=== PATIENT | female | born 1980 | race African-American/Black ===

== ENCOUNTER 2018-02-14 16:39 | Emergency (ER) | payer OTHER ==
[~2018-02-14] VITALS: Ht 162.6 cm; Wt 59.0 kg
[2018-02-14 17:09] VITALS: BP 104/71
[2018-02-14] MEDS ORDERED: DEXAMETHASONE 4 MG TABLET PO ONE (17:30)
[2018-02-14] MEDS ORDERED: PRED20TA PO (17:42)
[2018-02-14] MEDS ORDERED: ALBU8.5H8 INH (17:42)
[2018-02-14] MEDS ORDERED: BENZ100C PO (17:42)
--- NOTE | 2018-02-14 17:42 | PHYS DOC ---
Past History Past Medical History: Asthma Past Surgical History: Alcohol Use: None Drug Use: None Adult General Chief Complaint Chief Complaint: COUGH HPI HPI Patient is a [age] year old [sex] who presents with [] Review of Systems Review of Systems Constitutional: Denies fever or chills [] Eyes: Denies change in visual acuity, redness, or eye pain [] HENT: Denies nasal congestion or sore throat [] Respiratory: Denies cough or shortness of breath [] Cardiovascular: No additional information not addressed in HPI [] GI: Denies abdominal pain, nausea, vomiting, bloody stools or diarrhea [] : Denies dysuria or hematuria [] Musculoskeletal: Denies back pain or joint pain [] Integument: Denies rash or skin lesions [] Neurologic: Denies headache, focal weakness or sensory changes [] Endocrine: Denies polyuria or polydipsia [] All other systems were reviewed and found to be within normal limits, except as documented in this note. Current Medications Current Medications Current Medications Medications (Trade) Dose Ordered Sig/Margaret Start Time Stop Time Status Last Admin Dose Admin Dexamethasone (Decadron) 10 mg 1X ONCE 02/14/18 17:30 02/14/18 17:31 DC Allergies Allergies Allergies Coded Allergies Type Severity Reaction Last Updated Verified Penicillins Allergy Unknown 02/14/18 Yes Physical Exam Physical Exam Constitutional: Well developed, well nourished, no acute distress, non-toxic appearance. [] HENT: Normocephalic, atraumatic, bilateral external ears normal, oropharynx moist, no oral exudates, nose normal. [] Eyes: PERRLA, EOMI, conjunctiva normal, no discharge. [] Neck: Normal range of motion, no tenderness, supple, no stridor. [] Cardiovascular:Heart rate regular rhythm, no murmur [] Lungs & Thorax: Bilateral breath sounds clear to auscultation [] Abdomen: Bowel sounds normal, soft, no tenderness, no masses, no pulsatile masses. [] Skin: Warm, dry, no erythema, no rash. [] Back: No tenderness, no CVA tenderness. [] Extremities: No tenderness, no cyanosis, no clubbing, ROM intact, no edema. [] Neurologic: Alert and oriented X 3, normal motor function, normal sensory function, no focal deficits noted. [] Psychologic: Affect normal, judgement normal, mood normal. [] Current Patient Data Vital Signs Vital Signs Date Time Temp Pulse Resp B/P (MAP) Pulse Ox O2 Delivery O2 Flow Rate FiO2 02/14/18 17:09 Room Air 02/14/18 17:09 98.2 89 20 98 EKG EKG [] Radiology/Procedures Radiology/Procedures [] Course & Med Decision Making Course & Med Decision Making Pertinent Labs and Imaging studies reviewed. (See chart for details) [] Dragon Disclaimer Dragon Disclaimer This electronic medical record was generated, in whole or in part, using a voice recognition dictation system. Departure Departure: Impression: Primary Impression: Bronchitis Disposition: HOME, SELF-CARE Condition: STABLE Referrals: YUNI GUIDRY (PCP) Patient Instructions: Acute Bronchitis, Sbim-on-Fiit Scripts Benzonatate (TESSALON PERLE) 100 Mg Capsule 100 MG PO TID PRN PRN for COUGH, #20 CAP Prov: YOLY UPTON DO 02/14/18 Albuterol Sulfate (PROAIR HFA INHALER) 8.5 Gm Hfa.aer.ad 1 PUFF INH PRN Q6HRS PRN for SHORTNESS OF BREATH, #1 INHALER 0 Refills Prov: YOLY UPTON DO 02/14/18 Prednisone (PREDNISONE) 20 Mg Tablet 2 TAB PO DAILY, #8 TAB Prov: YOLY UPTON DO 02/14/18 YOLY UPTON DO Feb 14, 2018 17:42
--- NOTE | 2018-02-15 08:02 | RAD ---
EXAM: PA and lateral views of the chest DATE: 02/14/2018 5:31 PM CLINICAL INDICATION: Cough x 2 days, lmp 1 week ago, pt shielded COMPARISON: None. FINDINGS: The heart is not enlarged. Mediastinal and hilar contours are normal. No focal parenchymal airspace opacity. No pleural effusion or pneumothorax. IMPRESSION: 1. No radiographic evidence for acute cardiopulmonary process. Electronically signed by: Hans Singletary MD (02/15/2018 7:57 AM) [facility]
== END 2018-02-14 18:02 | disposition home or self-care (01) ==
LOC: ER 16:39 → EDBD 16:39 → ER 18:02
DX: J40 Bronchitis, not specified as acute or chronic (principal); J45.909 Unspecified asthma, uncomplicated; Z88.0 Allergy status to penicillin
CPT/HCPCS: 71046; 99284; J8540